=== PATIENT | female | born 1960 | race Caucasian/White ===

== ENCOUNTER 2017-11-05 07:01 | Day surgery (SDC) | payer BC, OTHER ==
[2017-11-05] MEDS ORDERED: PROPOFOL 500 MG/50 ML EMU IV ONE (07:45)
[2017-11-05 09:06] VITALS: BP 128/82; PULSE 52; RESP 18; TEMP 97.4; O2SAT 97
== END 2017-11-05 09:25 | disposition home or self-care (01) ==
LOC: SURG 07:01
PROVIDERS: ATTEND Surgery
DX: Z12.11 Encounter for screening for malignant neoplasm of colon (principal); Z86.010 Personal history of colon polyps; K57.30 Diverticulosis of large intestine without perforation or abscess without bleeding
CPT/HCPCS: J2704